=== PATIENT | male | born 1975 | race Hispanic/Latino ===

== ENCOUNTER 2019-05-31 09:35 | Emergency (ER) | payer SELFPAY ==
[~2019-05-31] VITALS: Ht 167.6 cm; Wt 81.7 kg
[2019-05-31] MEDS ORDERED: ULTRAM50 MG PO (09:54)
[2019-05-31] MEDS ORDERED: CYCLOBENZAPRINE10 MG PO (09:54)
== END 2019-05-31 10:40 | disposition home or self-care (01) ==
LOC: ED 09:35
DX: M54.5 Low back pain (principal)
CPT/HCPCS: 96372; 99283; J1885

== ENCOUNTER 2019-06-23 21:15 | Emergency (ER) | payer SELFPAY ==
[~2019-06-23] VITALS: Ht 167.6 cm; Wt 81.7 kg
[~2019-06-23 21:15] MED LIST: CYCLOBENZAPRINE10 MG PO; ULTRAM50 MG PO
--- OUTSIDE RECORDS SUMMARY | 2019-06-23 21:18 | XMS ---
PreManage Notification: AUGUSTA ALAS Security [employer] Hand Events No recent Security Events currently on file CRITERIA MET - [facility] - 2 Visits in 30 Days CARE PROVIDERS There are no care providers on record at this time. [facility] has no Care Guidelines for this patient. [facility] MO.) [facility] NOTE: Visits indicate total known visits. [place] [place]12 [place] 06/23/2019 21:15 [facility] TYPE: Emergency COMPLAINT: - LACERATION 05/31/2019 09:36 [facility] TYPE: Emergency COMPLAINT: - BACK PAIN DIAGNOSES: - Low back pain INPATIENT VISIT TRACKING (12 MO.) No inpatient visits to display in this time frame [email or web address]
== END 2019-06-24 00:47 | disposition home or self-care (01) ==
LOC: ED 21:15
PROC: 0HQDXZZ Repair Right Lower Arm Skin, External Approach (ICD-10-PCS; principal; 2019-06-23)
DX: S61.511A Laceration without foreign body of right wrist, initial encounter (principal); F10.129 Alcohol abuse with intoxication, unspecified; Y90.8 Blood alcohol level of 240 mg/100 ml or more; R45.851 Suicidal ideations; F17.200 Nicotine dependence, unspecified, uncomplicated; W26.9XXA Contact with unspecified sharp object(s), initial encounter
CPT/HCPCS: 12001; 80053; 80176; 81001; 84443; 85025; 99285-25; G0480